=== PATIENT | male | born 1990 | race Caucasian/White ===

== ENCOUNTER 2024-11-29 20:01 | Emergency (ER) | payer OTHER ==
[~2024-11-29] VITALS: Ht 182.8 cm; Wt 94.3 kg
[2024-11-29] MEDS ORDERED: HYDR25T PO (20:14)
[2024-11-29] MEDS ORDERED: ZOLOFT100 MG PO (20:14)
[2024-11-29] MEDS ORDERED: ADDERALL 20 MG20 MG PO (20:15)
[2024-11-29] MEDS ORDERED: Sulfamethoxazole/Trimethopri 1 TAB TAB PO ONE (20:35)
[2024-11-29] MEDS ORDERED: Acetaminophen/Hydrocodone ES 7.5/325 tablet PO ONE ×2 (20:35)
[2024-11-29] MEDS ORDERED: MIRALAX POWDER17 G1 PO (20:37)
[2024-11-29] MEDS ORDERED: SEPTDS PO (20:37)
== END 2024-11-29 20:51 | disposition home or self-care (01) ==
LOC: ED 20:01
DX: L02.215 Cutaneous abscess of perineum (principal); Z88.1 Allergy status to other antibiotic agents; Z79.899 Other long term (current) drug therapy